=== PATIENT | male | born 1995 | race Caucasian/White ===

== ENCOUNTER 2019-12-16 09:45 | Emergency (ER) | payer SELFPAY ==
[2019-12-16 10:20] VITALS: BP 128/85
--- NOTE | 2019-12-16 10:28 | XRay Report ---
{null, LEFT ELBOW HISTORY: Trauma and pain. COMPARISON: None. TECHNIQUE: 3 views of the left elbow obtained. FINDINGS: Bones: No fracture or dislocation. Joint spaces: Maintained. Soft tissues: A prominent posterior fat pad and a displaced anterior fat pad are consistent with a ricki int effusion. Additional findings: None. IMPRESSION: 1. Findings are consistent with a joint effusion. 2. Otherwise normal. Signer Name: Jeff Meadows MD Signed: 12/16/2019 10:24 AM Workstation Name: [id number] }
[2019-12-16] MEDS ORDERED: HYDROcodone/ACETAMINOPHEN 5-325 MG TAB PO ONE (11:42)
[2019-12-16] MEDS ORDERED: KETOROLAC 30 MG/1 ML INJ IM ONE (11:42)
--- NOTE | 2019-12-16 11:45 | Emergency Department Report ---
{null, ED Upper Extremity Inj HPI - General Chief Complaint: Extremity Injury, Upper Stated Complaint: LT ELBOW PAIN Time Seen by Provider: 12/16/19 11:30 Source: patient Mode of arrival: Ambulatory Limitations: Language Barrier (Translation done by friend. Patient able to understand Gabonese and speaks some.) - History of Present Illness Initial Comments: This is a pleasant 24-year-old male who presents the emergency department with a chief complaint of left elbow pain. Patient reports this started when he woke up this morning. Pain is a 9 out of 10 described as sharp and stabbing with any movement. He cannot recall any injuries. 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 He reports some soft tissue swelling and pain with any range of motion. He denies any known past medical history, current medication use or known allergies to medications. He denies any associated fever, chills, night sweats, headache, dizziness, blurry vision, chest pain, shortness of breath, nausea, vomiting, diarrhea or any other associated symptoms. - Related Data Previous Rx's Medication Instructions Recorded Last Taken Type Acetaminophen with Codeine 1 each PO Q6HR 3 Days #12 tablet 12/16/19 Unknown Rx [Acetaminophen-Codeine #4 TAB] Naproxen [Naprosyn] 500 mg PO BID #20 tablet 12/16/19 Unknown Rx methylPREDNISolone [Medrol 4MG 4 mg PO ONCE #1 tab.ds.pk 12/16/19 Unknown Rx DOSEPAK (21 tabs)] Allergies Allergy/AdvReac Type Severity Reaction Status Date / Time No Known Allergies Allergy Unverified 12/16/19 09:49 ED Review of Systems ROS: Stated complaint: LT ELBOW PAIN Other details as noted in HPI Comment: All other systems reviewed and negative Constitutional: denies: chills, fever Eyes: denies: eye pain, eye discharge, vision change ENT: denies: ear pain, throat pain Respiratory: denies: cough, shortness of breath, wheezing Cardiovascular: denies: chest pain, palpitations Endocrine: no symptoms reported Gastrointestinal: denies: abdominal pain, nausea, diarrhea Genitourinary: denies: urgency, dysuria Musculoskeletal: as per HPI, joint swelling, myalgia. denies: back pain, arthralgia Skin: denies: rash, lesions Neurological: denies: headache, weakness, paresthesias Psychiatric: denies: anxiety, depression Hematological/Lymphatic: denies: easy bleeding, easy bruising ED Past Medical Hx - Past Medical History Previous Medical History?: No - Surgical History Past Surgical History?: No - Medications Home Medications: Home Medications Medication Instructions Recorded Confirmed Last Taken Type Acetaminophen with Codeine 1 each PO Q6HR 3 Days #12 tablet 12/16/19 Unknown Rx [Acetaminophen-Codeine #4 TAB] Naproxen [Naprosyn] 500 mg PO BID #20 tablet 12/16/19 Unknown Rx methylPREDNISolone [Medrol 4MG 4 mg PO ONCE #1 tab.ds.pk 12/16/19 Unknown Rx DOSEPAK (21 tabs)] ED Physical Exam - General Limitations: Language Barrier General appearance: alert, in no apparent distress - Head Head exam: Present: atraumatic, normocephalic - Eye Eye exam: Present: normal appearance, PERRL - ENT ENT exam: Present: normal exam, normal orophraynx, mucous membranes moist - Neck Neck exam: Present: normal inspection, full ROM. Absent: tenderness, meningismus - Respiratory Respiratory exam: Present: normal lung sounds bilaterally. Absent: respiratory distress, wheezes, rales, rhonchi, stridor - Cardiovascular Cardiovascular Exam: Present: regular rate, normal rhythm. Absent: systolic murmur, diastolic murmur, rubs, gallop - GI/Abdominal GI/Abdominal exam: Present: soft, normal bowel sounds. Absent: distended, tenderness - Rectal Rectal exam: Present: deferred - Extremities Exam Extremities exam: Present: normal inspection, tenderness (Tenderness to the lateral left elbow with obvious effusion noted. Normal radial pulses. Patient unable to tolerate range of motion secondary to pain. No warmth, or cellulitis.), other. Absent: full ROM - Back Exam Back exam: Present: normal inspection - Neurological Exam Neurological exam: Present: alert, oriented X3 - Psychiatric Psychiatric exam: Present: normal affect, normal mood - Skin Skin exam: Present: warm, dry, intact, normal color. Absent: rash ED Course Vital Signs 12/16/19 10:19 Temperature 97.9 F Pulse Rate 70 Respiratory 24 Rate Blood Pressure 128/85 [Right] O2 Sat by Pulse 98 Oximetry ED Medical Decision Making - Radiology Data Radiology results: report reviewed, image reviewed XRay Report Signed Patient: MARIAM TORRES MR#: [id number] : 1995 Acct:[id number] Age/Sex: 24 / M ADM Date: 12/16/19 Loc: ED Attending Dr: Ordering Physician: RK HIGH MD Date of Service: 12/16/19 Procedure(s): XR elbow 3+V LT Accession Number(s): [id number] cc: RK HIGH MD Fluoro Time In Minutes: LEFT ELBOW HISTORY: Trauma and pain. COMPARISON: None. TECHNIQUE: 3 views of the left elbow obtained. FINDINGS: Bones: No fracture or dislocation. Joint spaces: Maintained. Soft tissues: A prominent posterior fat pad and a displaced anterior fat pad are consistent with a joint effusion. Additional findings: None. IMPRESSION: 1. Findings are consistent with a joint effusion. 2. Otherwise normal. Signer Name: Darío Welsh MD Signed: 12/16/2019 10:24 AM Workstation Name: [id number] Transcribed By: REF Dictated By: DARÍO WELSH MD Electronically Authenticated By: DARÍO WELSH MD Signed Date/Time: 12/16/19 1024 - Medical Decision Making Patient is nontoxic in no acute distress. Vitals are stable. Patient is afebrile and there is no erythema or induration to his elbow. There is an effusion noted. X-ray does show effusion in the joint with a possible fat pad sign. I did consider gout however the patient has no history of gout and is not on any medications that would precipitate this. Also considered septic joint however the patient is not diabetic, has not had any recent procedures to the elbow, there is no warmth or fever making this less likely. I did offer to do a joint aspiration however patient platelet declined. I will treat the patient with anti-inflammatories and stronger pain medication and place him in a posterior splint. This was applied by the DIGITAL RETOUCHER and supervised by me. The neurovascular exam pre-and post application was unremarkable. Recommend ice, elevation and orthopedics follow-up in the next 1 to 2 days for reevaluation. Return to the emergency department any changing or worsening symptoms. Patient verbalized understanding of diagnosis, treatment plan and follow-up instructions and all his questions were answered. - Differential Diagnosis Occult fracture, gout, septic joint, bursitis Critical care attestation.: If time is entered above; I have spent that time in minutes in the direct care of this critically ill patient, excluding procedure time. ED Disposition Clinical Impression: Effusion, left elbow Disposition: DC- TO HOME OR SELFCARE Is pt being admited?: No Condition: Stable Instructions: Arthralgia (ED) Prescriptions: Acetaminophen with Codeine [Acetaminophen-Codeine #4 TAB] 1 each PO Q6HR 3 Days #12 tablet methylPREDNISolone [Medrol 4MG DOSEPAK (21 tabs)] 4 mg PO ONCE #1 tab.ds.pk Naproxen [Naprosyn] 500 mg PO BID #20 tablet Referrals: MAKEDA LAY MD [Staff Physician] - 3-5 Days Forms: Work/School Release Form(ED) Time of Disposition: 11:50 }
== END 2019-12-16 13:02 | disposition home or self-care (01) ==
LOC: ED 09:45
DX: M25.422 Effusion, left elbow (principal); Z79.899 Other long term (current) drug therapy
CPT/HCPCS: 29105; 73080; 96372; 99283; J1885